=== PATIENT | female | born 2000 | race Caucasian/White ===

== ENCOUNTER 2022-12-18 06:16 | Inpatient (IN) ==
[2022-12-18] MEDS ORDERED: BETADINE SOLN ONE (06:33)
[2022-12-18] MEDS ORDERED: D5 1/2 NS 1,000 ML 1,000 ML IV ONE (06:33)
[2022-12-18] MEDS ORDERED: PITOCIN ONE (06:33)
[2022-12-18] MEDS ORDERED: D5 1/2 NS 1,000 mL + PITOCIN 20 UNITS/L IV 20 UNITS/1,000 ML BAG IV ONE (06:34)
[2022-12-18] MEDS ORDERED: D5 LR + PITOCIN 10 UNITS/L 10 UNITS/1,000 ML BAG IV ONE ×2 (06:34→18:27)
--- NOTE | 2022-12-18 07:10 | DR.OB ---
OB Quick Note - Assessment/Plan Assessment/Plan: L&D 12/18/22 at 7:05am S-No complaint. O-Afebrile,VSS JYI=[id number] with good LTV, +accel, no decel. CTX=mild uterine irritability CVX=2cm/50%/-1/VTX AROM with clear fluid. IUPC and FSE placed. A-IUP at 39 0/7 weeks for induction Rh- P-Begin pitocin induction Anticipate
[2022-12-18] MEDS ORDERED: REGLAN INJ 10 MG VIAL IVP PRN (08:00)
[2022-12-18] MEDS ORDERED: STADOL INJ IVP PRN (08:00)
[2022-12-18] MEDS ORDERED: NUBAIN INJ 20 MG AMP IVP PRN (08:00)
[2022-12-18] MEDS ORDERED: D5 1/2 NS 1,000 ML 1,000 ML IV SCH (08:00)
[2022-12-18] MEDS ORDERED: PITOCIN IVP ONE (08:00)
[2022-12-18] MEDS ORDERED: D5 LR + PITOCIN 10 UNITS/L 10 UNITS/1,000 ML BAG IV PRN (08:00)
[2022-12-18] MEDS ORDERED: ZOFRAN INJ 4 MG VIAL IVP PRN (08:00)
[2022-12-18] MEDS ORDERED: LR 1,000 ML IV 1,000 ML IV ONE (10:52)
[2022-12-18] MEDS ORDERED: FENTANYL VIAL INJ 100 mcg ONE (11:00)
[2022-12-18] MEDS ORDERED: NAROPIN EPIDURAL 0.2% 100 ML ONE (11:01)
--- NOTE | 2022-12-18 12:06 | DR.OB ---
OB Quick Note - Assessment/Plan Assessment/Plan: L&D 12/18/22 at 12:00pm Pitocin=14mu/min. S-No complaint. s/p epidural. O-Afebrile,VSS DGQ=217 with good LTV, +accel, no decel. CTX=q 1 1/2 to 2 min., about 35-45mmHg CVX=3cm/75%/-1 A-IUP at 39 0/7 weeks for induction Rh- P-Cont. pitocin induction Anticipate
--- NOTE | 2022-12-18 17:09 | DR.OB ---
OB Quick Note - Assessment/Plan Assessment/Plan: L&D 12/18/22 at 5:00pm Pitocin=22mu/min. S-No complaint. O-Afebrile,VSS JSM=[id number] with good LTV, +accel, no decel. CTX=q 1 1/2 min., about 45-55mmHg CVX=7cm/75%/-1 A-IUP at 39 0/7 weeks for induction Rh- P-Continue pitocin induction Anticipate
[2022-12-18] MEDS ORDERED: MARCAINE 0.25% INJ ONE (17:18)
--- NOTE | 2022-12-18 20:05 | DR.OB ---
OB Quick Note - Assessment/Plan Assessment/Plan: Delivery Note [employer] 12/18/22 at 19:45 Patient complete and pushing. Head delivered over intact perineum. Nuchal cord x 1 reduced. Nose and mouth bulb suctioned. Body delivered over intact perineum. Cord clamped x 2 and cut. Infant handed to attendant. Cord sent for gases. Placenta delivered spontaneously / intact / 3 vessel cord. No CVX tears. A second degree midline tear noted and repaired with 0-vicryl in usual fashion. Viable male infant delivered by , wt=8'12" and 8/9, stable to NBN. Mother stable to RR. FHD=478px.
[2022-12-18] MEDS ORDERED: DERMOPLAST PAIN RELIEF SPRAY TOP PRN (20:48)
[2022-12-18] MEDS ORDERED: AMBIEN PO PRN (20:48)
[2022-12-18] MEDS ORDERED: ADACEL or BOOSTRIX TDaP VACCINE IM ONE (20:48)
[2022-12-18] MEDS ORDERED: HYPERRHO S/D (or RHOGAM) IM PRN (20:48)
[2022-12-18] MEDS ORDERED: MILK OF MAGNESIA PO PRN (20:48)
[2022-12-18] MEDS: D5 1/2 NS 1,000 ML 1,000 ML with PITOCIN 20 UNITS IV SCH ×2 (20:51)
[2022-12-18] MEDS: MOTRIN TAB 800 MG PO PRN (22:10)
[2022-12-19 05:42] LABS: HEMATOCRIT 30.4 % (36.0-47.0)
[2022-12-19 05:43] LABS: HEMOGLOBIN 9.8 g/dL (12.0-16.0)
[2022-12-19] MEDS: MOTRIN TAB 800 MG PO PRN (05:55)
[2022-12-19] MEDS: D5 1/2 NS 1,000 ML 1,000 ML with PITOCIN 20 UNITS IV SCH ×6 (05:55→20:52)
[2022-12-19] MEDS: SYNTHROID 50 mcg TAB PO SCH (06:10)
[2022-12-19] MEDS: PRENATAL PLUS PO SCH (09:06)
[2022-12-20] MEDS: D5 1/2 NS 1,000 ML 1,000 ML with PITOCIN 20 UNITS IV SCH ×4 (05:12→13:51)
[2022-12-20] MEDS: SYNTHROID 50 mcg TAB PO SCH (05:29)
[2022-12-20] MEDS: PRENATAL PLUS PO SCH (09:06)
[2022-12-20 11:51] VITALS: RESP 18
[2022-12-20] MEDS: MOTRIN TAB 800 MG PO PRN (13:44)
[2022-12-20 13:49] VITALS: BP 122/75; PULSE 97; TEMP 98.6; O2SAT 97
== END 2022-12-20 14:45 | disposition home or self-care (01) | DRG 807 ==
LOC: LD 06:16 → MED/SURG 20:51
PROVIDERS: ADMIT Specialist; ATTEND Specialist
DX: O99.283 Endocrine, nutritional and metabolic diseases complicating pregnancy, third trimester; G43.909 Migraine, unspecified, not intractable, without status migrainosus; O70.1 Second degree perineal laceration during delivery; Z01.812 Encounter for preprocedural laboratory examination; E03.8 Other specified hypothyroidism; Z37.0 Single live birth; Z3A.39 39 weeks gestation of pregnancy; O26.893 Other specified pregnancy related conditions, third trimester